=== PATIENT | male | born 1995 | race Caucasian/White ===

== ENCOUNTER 2016-12-09 08:31 | Emergency (ER) | payer OTHER ==
[~2016-12-09] VITALS: Ht 180.3 cm; Wt 93.2 kg
[2016-12-09 08:34] VITALS: BP 145/83; PULSE 77; RESP 16; O2SAT 100
--- NOTE | 2016-12-09 08:51 | ED.REPORT ---
HPI-General Illness Date of Service Dec 09, 2016 ED Provider: Roshan Klein DO The patient is a 21 year old male who presents to the ED accompanied by his friend due to an episode of LOC after smoking marijuana. He complains of head and neck pain and cannot exactly recall what happened. He is still slightly high. Per the patient's friend, after an 8 hr graveyard shift they each took 2 hits of marijuana concentrate. After smoking, the pt took 2 to 3 steps, fainted , fell backwards, and was unresponsive for 30 seconds to 1 minute. His eyes rolled back in his head and was extremely stiff. He did not lose bowel control. He denies any other drug use. He has smoked marijuana before and has never had this adverse reaction. Prior to the episode, he was feeling fine. The pt is anxious and concerned his memory loss will not return. Nursing Notes Stated Complaint: FELL HIT HEAD Chief Complaint: General Complaint Nursing Notes Reviewed: Yes Allergies: Coded Allergies: No Known Allergies (Unverified , 12/09/16) General Time Seen by MD: 08:45 Chief Complaint Other (head pain) Hx Obtained From: Patient Arrived By: Walk-in Sudden in Onset?: Yes Onset Occurred: Just prior to arrival Context of Onset: Other (THC use) Symptom Duration: Since onset Location: : Head Quality: Painful Radiation: : Does not radiate Severity: Current: Moderate Recent Healthcare: No recent doctor visit, No recent hospitalization Similar Sx Previous: No Past Medical History Past Medical History healthy Past Surgical History healthy Smoking History Unknown if Ever Smoker Social History Drug Use: THC Other Social History: Local resident Ambulatory Status Independent Review of Systems Full Review of Systems Musculoskeletal: Reports: Neck pain Neurologic: Reports: Change LOC Complete sys rev & neg: except as marked. Physical Exam Vital Signs Vital Signs Date Time Temp Pulse Resp B/P Pulse Ox O2 Delivery O2 Flow Rate FiO2 12/09/16 08:34 37.0 77 16 145/83 100 Room Air Initial VS: Reviewed ENT: Mucous membranes moist, Conjunctiva normal, No scleral icterus Neck: Supple, Non-tender, Full range of motion Respiratory: Breath sounds normal, Clear to auscultation, No respiratory distress Cardiovascular: Regular rate & rhythm, Heart sounds normal, Intact distal pulses Abdomen / GI: Soft, Non-tender, No guarding, No rebound, No distention Extremities: Vascular intact, Neuro intact, No swelling, No tenderness Skin: Warm, Dry, No cyanosis General/Constitutional: Awake, Cooperative Head / Eyes: Atraumatic, Normocephalic, PERRL, EOMI no facial asymmetry full and nontender ROM of neck no midline neck tenderness or paraspinal neck tenderness base of occiput mild tenderness on right side no palpable contusions no abrasion ENT: Atraumatic, Mucous membranes moist, Pharynx NL, Tympanic membs NL Re-Eval/Medical Decision Med Decision/Clinical Course 21-year-old male presenting with a ground-level fall after marijuana use and complaining of memory loss after a 30 second blackout. His head and neck exam are benign and he does not meet criteria for a head CT. His neurologic exam is normal. I suspect he may have had a concussion and have given him the appropriate instructions. He will follow-up with his primary care provider next week. Counseled Regarding: Diagnosis, Lab results, Need for follow-up, When/why to return to ED Discharge & Departure Primary Impression: Concussion Encounter type: initial encounter Loss of consciousness presence/duration: with LOC of 30 min or less Qualified Code: S06.0X1A - Concussion with loss of consciousness of 30 minutes or less, initial encounter Additional Impression: Marijuana use Disposition: Home Discharge Condition All VS Reviewed: Yes Condition: Stable Patient Instructions: Concussion (GEN) Additional Instructions: I believe you had a fall related to your drug use. You may have a concussion following your fall. I believe you will make a complete recovery and your memory will return to normal. Take Tylenol and Ibuprofen as needed for any pain. Follow up with your primary care physician in the next week for re- evaluation. A handout with information on concussions is given with your discharge paperwork. You should return if you have a seizure, have trouble walking or talking, have vision changes, feel numb in a part of your body, lose bowel or bladder control, if you have a severe headache, or you are continuously vomiting. I hope you feel better soon! Referrals: NOPCP (PCP) Kaylaibe Attestation Portion of this note were transcribed by Renée Ruiz. I, Dr. Klein, personally performed the history, physical exam, and medical decision-making: I reviewed and confirmed the accuracy for the information in the transcribed note. Signed by: angelito Lund, 12/09/16 1000 Roshan Klein DO Dec 09, 2016 08:51 Renée Ruiz Dec 09, 2016 09:11
[2016-12-09 10:04] VITALS: BP 134/78; PULSE 74; RESP 16; O2SAT 100
== END 2016-12-09 10:05 | disposition home or self-care (01) ==
LOC: SED 08:31
DX: S06.0X1A Concussion with loss of consciousness of 30 minutes or less, initial encounter (principal); W18.39XA Other fall on same level, initial encounter; Y93.89 Activity, other specified; Y92.89 Other specified places as the place of occurrence of the external cause; Y99.8 Other external cause status; F12.10 Cannabis abuse, uncomplicated

== ENCOUNTER 2017-02-10 14:43 | Emergency (ER) | payer OTHER ==
[~2017-02-10] VITALS: Ht 180.3 cm; Wt 79.5 kg
[2017-02-10 14:53] VITALS: BP 113/71; PULSE 66; RESP 15; O2SAT 98
--- NOTE | 2017-02-10 16:04 | DRSVH ---
PROCEDURE: X-RAY LEFT SHOULDER, MINIMUM TWO VIEWS ([id number]) INDICATIONS: pain, trauma TECHNIQUE: 2 views of the shoulder were acquired. COMPARISON: None. FINDINGS: Bones: No acute fracture or dislocation is evident involving the glenohumeral or acromioclavicular brett int. Comminuted fracture of the mid left clavicle shaft is present with inferior depression of the p rincipal fracture fragments. The bone mineralization is within normal limits. No suspicious osseous lesions are evident. Soft tissues: No suspicious soft tissue calcifications. IMPRESSION: 1. Left mid clavicle shaft fracture. 2. The glenohumeral and acromioclavicular joints are well-maintained. Dictated by: Davy Brian M.D. on 02/10/2017 at 15:02 Approved by: Davy Brian M.D. on 02/10/2017 at 15:03
--- NOTE | 2017-02-10 16:05 | DRSVH ---
PROCEDURE: X-RAY LEFT CLAVICLE, COMPLETE ([id number]) INDICATIONS: LEFT CLAVICULE SWELLING, PAIN AFTER FALL TECHNIQUE: 2 views of the clavicle were acquired. COMPARISON: None. FINDINGS: Bones: There is a comminuted fracture present involving the mid left clavicle shaft with inferior dis placement of the distal fracture fragment by at least 2 cm. Mild overriding of the distal fracture f ragments also is present. There is no dislocation of the sternoclavicular or the acromioclavicular j oints. The remainder of the overlying bony structures are otherwise unremarkable. No suspicious oss eous lesions are evident. Soft tissues: No suspicious soft tissue calcifications. Soft tissue swelling at the fracture site i s noted. IMPRESSION: Inferiorly displaced comminuted mid left clavicle shaft fracture. Dictated by: Davy Brian M.D. on 02/10/2017 at 15:03 Approved by: Davy Brian M.D. on 02/10/2017 at 15:04
[2017-02-10] MEDS ORDERED: HYDROcodone-APAP 10-325 mg PO ONE (16:30)
--- NOTE | 2017-02-10 16:50 | ED.REPORT ---
HPI-Extremity Problem Upper Date of Service February 10, 2017 ED Provider: Bishnu Huang PA-C Michele is an otherwise healthy 21-year-old male presenting with a chief complaint of left shoulder pain. He reports falling on his shoulder while playing football. Patient is left-handed. Reports pain with range of motion. Nursing Notes Stated Complaint: RIGHT SHOULDER INJURY Chief Complaint: Extremity Trauma Nursing Notes Reviewed: Yes Allergies: Coded Allergies: No Known Allergies (Unverified , 12/09/16) General Time Seen by MD: 16:36 Chief Complaint Shoulder injury left Past Medical History Past Medical History healthy Past Surgical History healthy Smoking History Unknown if Ever Smoker Social History Drug Use: THC Other Social History: Local resident Ambulatory Status Independent Review of Systems Negative unless stated otherwise in history of present illness Physical Exam General: Well appearing, well developed, well nourished, no acute distress. Left shoulder: Redness, tenderness and deformity over the midshaft left clavicle. Head: Atraumatic, normocephalic. Eyes: No scleral icterus or injection. No discharge. Vision grossly intact. ENT: Voice clear, hearing grossly intact. Respiratory: No respiratory distress, no increased work of breathing. Speaks in complete sentences. Skin: Warm and dry. Neurological: Deltoid abduction, wrist flexion and extension, finger flexion and abduction strength 5/5 B/L. Sensation to light touch intact over deltoid as well as first, third and fifth digits B/L. Psychological: alert and oriented. Speech appropriate, linear and logical. Behavior appropriate. Initial Vital Signs Vital Signs (First) Date Time Temp Pulse Resp B/P Pulse Ox O2 Delivery O2 Flow Rate FiO2 02/10/17 14:53 36.1 66 15 113/71 98 Room Air Initial VS: Vital signs normal Interpretation & Diagnostics X-Ray Interpretation Xray Interpretation: PROCEDURE: X-RAY LEFT SHOULDER, MINIMUM TWO VIEWS ([id number]) INDICATIONS: pain, trauma IMPRESSION: 1. Left mid clavicle shaft fracture. 2. The glenohumeral and acromioclavicular joints are well-maintained. PROCEDURE: X-RAY LEFT CLAVICLE, COMPLETE ([id number]) INDICATIONS: LEFT CLAVICULE SWELLING, PAIN AFTER FALL IMPRESSION: Inferiorly displaced comminuted mid left clavicle shaft fracture. Interpretation / Wet Read by: Interpret - Radiologist Re-Eval/Medical Decision Med Decision/Clinical Course Otherwise healthy 21-year-old male presents with left clavicle pain which began suddenly while playing football. Neurovascularly intact distally injury. X- ray reveals comminuted midshaft fracture the left clavicle. I discussed case with Dr. Maria recommends sling, follow up in clinic on Monday, likely surgery on Monday. Treated the patient according to his recommendations. Discharged to home with prescription for pain medication with precautions, orthopedic referral, to return precautions. Patient verbalizes understanding of and consent to the plan. Consultation : Referral / Consult Name: Jerry Singh DO Consulted With: Orthopedic Call Returned at: 16:55 Note: Advises sling, follow-up in clinic on Monday. Believes surgery will be likely on Monday. Discharge & Departure Impression: Primary Impression: Fracture of clavicle, left, closed Encounter type: initial encounter Clavicle location: shaft Fracture alignment: displaced Qualified Code: S42.022A - Displaced fracture of shaft of left clavicle, initial encounter for closed fracture Additional Instructions: Evaluation for left shoulder pain emergency Department includes history, physical examination and x-rays which reveal a fracture in her left collarbone. I discussed this case with her orthopedic surgeon who recommends placing him in a splint over the weekend and having a follow-up in office early next week. Contact his office on Monday to arrange follow-up. Pain is best managed with 100 mg of ibuprofen taken every 6 hours. I will write a prescription for a small amount of hydrocodone/acetaminophen to be taken for more severe pain. Do not drive or drink alcohol within 4 hours of taking this medication. Return to the emergency department for any new or worsening symptoms including increasing pain, development of a cold or numb hand. Referrals: Jerry Singh DO EDSupervising Provider for APC: Romaine Cavazos MD copies to: Jerry Singh Seth PA-C February 10, 2017 16:50
== END 2017-02-10 17:25 | disposition home or self-care (01) ==
LOC: SED 14:43
DX: S42.022A Displaced fracture of shaft of left clavicle, initial encounter for closed fracture (principal); W19.XXXA Unspecified fall, initial encounter; Y93.61 Activity, american tackle football; Y92.9 Unspecified place or not applicable; Y99.8 Other external cause status

== ENCOUNTER 2017-02-13 13:57 | Day surgery (SDC) | payer OTHER ==
[~2017-02-13] VITALS: Ht 180.3 cm; Wt 80.0 kg
[2017-02-13] VITALS (10 sets, daily range): BP systolic 125–151; BP diastolic 54–93; PULSE 69–122; RESP 16; O2SAT 98–100
[2017-02-13] MEDS ORDERED: fentaNYL-PF 50 mCg/mL 2 mL Inj ONE (13:58)
[2017-02-13] MEDS ORDERED: Ondansetron 2 mg/mL 2 mL Inj ONE (13:58)
[2017-02-13] MEDS ORDERED: Dexamethasone 4 mg/mL Inj ONE (13:58)
[2017-02-13] MEDS ORDERED: Propofol 10,000 mCg/mL 20 mL Inj ONE (13:58)
[2017-02-13] MEDS ORDERED: CeFAZolin Inj 2 gm / 50mL D5W IV ONE (14:05)
[2017-02-13] MEDS ORDERED: Lactated Ringer's 1,000 ML IV ONE ×2 (14:58→20:13)
--- NOTE | 2017-02-13 17:47 | PCM.HPANE ---
Patient Data Date of Service: February 13, 2017 (1720) Surgeon Admitting Provider: Attending Provider:Jerry Singh DO Primary Care Physician:Edgardo Cramer DO Other Provider:Haydee Souza Anesthesia Reason for Visit Left Clavicle Fracture Ht/WT & BMI Height (Feet): 5 Height (Inches): 11 Weight (Kilograms): 80 Body Mass Index 24.00 Allergies Coded Allergies: No Known Allergies (Unverified , 12/09/16) Past Anesthesia History Anesthesia History: Denies:: Abnormal Airway, Anesthesia Reactions Diabetes History Hx Diabetes?: No MRSA MRSA: No Medications Home Meds Incl Beta Trinidad: No History History of ENT Problems?: No HEENT History: Denies:: Abnormal Airway Denture Type: None Teeth Condition: Within Normal Limits Hx of Heart Problems?: No Cardiovascular History: Denies:: Congestive Heart Failure Hypertension Hx of Respiratory Problem?: No Respiratory History: Denies:: Tuberculosis Hx Neurologic Problems?: No Hx of GI Problems?: No Hx of Problems?: No Hx Musculoskeletal Problems?: Yes (clavicle fracture) Hx of Psycho/Social Problems?: No Hx Surgeries?: Yes Hx Any Other Health Problems?: No Hx Diabetes: No Hx Substance Use: Yes (MARIJUANA) Smoking Status: Unknown if Ever Smoker Stop/Bang Treated for Sleep Apnea?: No Do You Have a CPAP Machine?: No S-Snoring: Do You Snore Loudly: No LANRE Risk Assessment: Low Risk, <3 Yes Risk Assessment Category Category 1A: Patient has history of documented sleep apnea, and HAS NOT received any narcotic, sedative or anesthesia administration during this stay. Category 1B: Patient has history of documented sleep apnea, and HAS received any narcotic , sedative or anesthesia administration during this stay Category 2: Patient has SUSPECTED Obstructive Sleep Apnea, and HAS received any narcotic , sedative or anesthesia administration during this stay. Category 3: Patient has SUSPECTED Obstructive Sleep Apnea and HAS NOT received narcotic, sedative or anesthesia administration during this stay. Category 4: Outpatient in Procedural Areas with known sleep apnea or who screen positive for High Risk via the STOP/BANG questionnaire. Exam Exam Vital Signs Vital Signs Date Time Temp Pulse Resp B/P Pulse Ox O2 Delivery O2 Flow Rate FiO2 02/13/17 14:33 36.1 69 16 132/78 100 Room Air General Appearance: Alert, Oriented X3, Cooperative HEENT/AIRWAY: MP 1 Lungs: Clear to Auscultation Heart: Exam Unremarkable Meds/Labs/Diagnostics Admission Meds Current Medications Lactated Ringer's (Lr) 1,000 ml @ ud STK-MED ONCE IV Last administered on 02/13t 14:58; Start 02/13/17 at 14:58; Stop 02/13/17 at 14:59; Status DC Plan Impression Patient chart reviewed, patient interviewed and anesthestic plan with risks, benefits, and alternatives discussed, and informed consent obtained. NPO per Anesth. Guidelines: Yes ASA Physical Status: ASA1 Normal Healthy Anesthetic Plan: GA Bene/Risks/Altern/Consents: Yes HP Complete Prior to Induction: Yes Seferino Leavitt MD February 13, 2017 17:47
[2017-02-13] MEDS ORDERED: Lactated Ringer's 1,000 ML IV SCH (17:48)
[2017-02-13] MEDS ORDERED: Lactated Ringer's 500 ML IV PRN (17:48)
[2017-02-13] MEDS ORDERED: Dexamethasone 4 mg/mL Inj IVPUSH PRN (17:50)
[2017-02-13] MEDS ORDERED: HYDROmorphone 1 mg/mL Inj IVPUSH PRN (17:50)
[2017-02-13] MEDS ORDERED: EPHEDrine Sulfate 50 mg/mL Inj IVPUSH PRN (17:50)
[2017-02-13] MEDS ORDERED: Phenylephrine 10,000 mCg/mL Inj IVPUSH PRN (17:50)
[2017-02-13] MEDS ORDERED: Ondansetron 2 mg/mL 2 mL Inj IVPUSH PRN (17:50)
[2017-02-13] MEDS ORDERED: MetoCLOpramide 5 mg/mL 2 mL Inj IVPUSH PRN (17:50)
[2017-02-13] MEDS ORDERED: Bupivacaine Liposome 1.3% 20 mL Inj ONE (19:20)
[2017-02-13] MEDS ORDERED: Bupivacaine 0.5%/EPI 50 mL Inj INFILTRATE ONE (19:29)
[2017-02-13] MEDS ORDERED: Acetaminophen IV 1,000 MG in IV Premix 1 EACH IV PRN (19:45)
[2017-02-13] MEDS ORDERED: hydrOXYzine Pamoate 25 mg Capsule PO PRN (19:45)
[2017-02-13] MEDS ORDERED: oxyCODONE-Acetamin 5-325 mg Tablet PO PRN (19:45)
--- NOTE | 2017-02-13 20:02 | PCM.ANEP1 ---
Post Anesthesia Phase 1 PACU Phase 1 Assessment Date of Service: February 13, 2017 (0790) Vital Signs 36.8, 16, 120, 100%, 125/54 Vital Signs Date Time Temp Pulse Resp B/P Pulse Ox O2 Delivery O2 Flow Rate FiO2 02/13/17 14:33 36.1 69 16 132/78 100 Room Air Anesthetic Administered: GA Level of Alertness: Awake, talking HUGO's with Equal Strength: Yes Pain: No Nausea or Vomiting: No Cardiovascular Function and Hy: Yes Oxygen Delivery: Room Air Lungs: Clear to Auscultation Dermatome Level: Full Sensation Summary uneventful GA Complications: No Follow up Care: No Seferino Leavitt MD February 13, 2017 20:02
[2017-02-13] MEDS: fentaNYL-PF 50 mCg/mL 2 mL Inj IVPUSH PRN ×2 (20:19→20:21)
--- NOTE | 2017-02-13 20:23 | DRSVH ---
PROCEDURE: X-RAY CHEST ONE VIEW, PORTABLE ([id number]) INDICATIONS: post op TECHNIQUE: One view of the chest was acquired. COMPARISON: [facility] [place], CHEST 2VW, 06/19/2007, 15:15. FINDINGS: Surgical changes and devices: ORIF of the left clavicle. Lungs and pleura: No pleural effusions or pneumothorax. Lungs are clear. Mediastinum: Mediastinal contours appear normal. Heart size is normal. Bones and chest wall: No suspicious bony lesions. Overlying soft tissues appear unremarkable. IMPRESSION: No acute process. Dictated by: Nila Dunaway M.D. on 02/13/2017 at 20:21 Approved by: Nila Dunaway M.D. on 02/13/2017 at 20:21
--- NOTE | 2017-02-14 00:44 | OP ---
[address] [address] OPERATIVE REPORT PATIENT: MATT BRINK : 1995 MR#: [id number] ADMIT: 02/13/2017 JOB ID: [id number] DATE OF SURGERY: 02/13/2017 PREOPERATIVE DIAGNOSIS(ES): Left comminuted midshaft clavicle fracture. POSTOPERATIVE DIAGNOSIS(ES): Left comminuted midshaft clavicle fracture. PROCEDURE: Left clavicle open reduction and internal fixation. SURGEON: Jerry Singh DO. ANESTHESIA: General. INDICATIONS: The patient is a 21-year-old male who fell while playing football with some friends, sustaining a comminuted mid shaft left clavicle fracture. We discussed treatment options for this and he wished to proceed with open reduction and internal fixation. We discussed the risks, benefits, and possible complications of surgery including, but not limited to injury to nerves and vessels, infection, bleeding, incomplete relief of symptoms, stiffness, need for additional procedures. The patient had good understanding, all questions were answered and he wished to proceed. A surgical supplies sterilizer was required for the successful completion of this procedure. PROCEDURE IN DETAIL: The patient is brought to the operating room. He was given an LMA general anesthetic and Ancef IV preoperatively. The left shoulder was sterilely prepped and draped. An incision was made over the clavicle. Dissection was carefully carried through subcutaneous tissue with electrocautery down onto the fracture, which was found to be quite comminuted. Fracture hematoma was debrided and there was free floating anterior-inferior fragment, as well as at least four other fragments. I placed a superior clavicle plate 8-hole onto the clavicle and secured it to the proximal fragment with a K-wire provisionally and then worked on the distal fragment, ultimately elected to secure it with a 3.5 cortex screw to the medial fragment and then reduce the lateral fragment to this fragment and secured it with a 3.5 cortex screw. Used biplane fluoroscopy to assess the reduction, which I felt was acceptable. Somewhat difficult given the comminution to plaster mixer. Then, I placed a #1 Ethibond suture to secure the posterior, inferior and anterior areas of comminution, and then also was able to capture anterior-inferior piece with a 2.7 lag screw and then added 3.5 cortex screws medially and laterally getting excellent fixation of the fracture. The fluoroscopy was used to confirm fracture reduction and satisfactory position of hardware. The wound was copiously irrigated and then closed with 0 Vicryl to repair the fascia, 2-0 to close the subcu, and the skin was closed with a running 4-0 Monocryl. Mixture of Marcaine and Exparel was used as an adjunct local anesthetic. Sterile dressings were applied. Patient tolerated the procedure well. Blood loss 75 cc. POSTOPERATIVE PROTOCOL: Have the patient maintain his dressing for 2-3 days, ice the shoulder, and follow up in two weeks for wound check.
== END 2017-02-13 23:59 | disposition home or self-care (01) ==
LOC: SAS 13:57
PROVIDERS: ATTEND Orthopaedic Surgery
DX: S42.022A Displaced fracture of shaft of left clavicle, initial encounter for closed fracture (principal); W17.89XA Other fall from one level to another, initial encounter; Y93.61 Activity, american tackle football; Y92.9 Unspecified place or not applicable; J45.909 Unspecified asthma, uncomplicated; M54.5 Low back pain; Z79.51 Long term (current) use of inhaled steroids
CPT/HCPCS: 23515; 71010; 76001; C1713; J0690; J1100; J1885; J2175; J2250; J2405; J3010; J7120; Q0177